=== PATIENT | female | born 1940 | race Caucasian/White ===

== ENCOUNTER 2017-10-31 18:25 | Inpatient (IN) | payer MEDICARE ==
[~2017-10-31] VITALS: Ht 157.5 cm; Wt 63.6 kg
[~2017-10-31 18:25] MED LIST: ALPR-624 PO; CLOP75TA35 PO; COM10T PO; COR3.125T PO; CYCL-394 PO; HYDR-3965 PO; MORP30TA PO; POTA20TA19 PO; SENN-28 PO; ZES5T PO
[2017-10-31] MEDS ORDERED: fentaNYL/PF 50MCG/1 ML 2ML syringe IV ONE (18:35)
[2017-10-31 18:52] LABS: BASOPHILS % (AUTO) 0.4 % (0-1); EOSINOPHILS # (AUTO) 0.2 X10'3 (0-0.9); EOSINOPHILS % (AUTO) 4.2 % (0-6); HEMATOCRIT 29.9 % (35.0-45.0); HEMOGLOBIN 10.2 g/dl (12.0-16.0); LYMPHOCYTES % (AUTO) 33.2 % (21-51); MEAN CORPUSCULAR HEMOGLOBIN 28.1 PG (27.0-31.0); MEAN CORPUSCULAR HGB CONC 34.2 % (33.0-36.5); MEAN CORPUSCULAR VOLUME 82.2 FL (78-98); MEAN PLATELET VOLUME 7.5 FL (7.4-10.4); MONOCYTES # (AUTO) 0.5 X10'3 (0-0.9); NEUTROPHILS # (AUTO) 3.2 X10'3 (1.8-7.7); NEUTROPHILS % (AUTO) 54.2 % (42-75); PLATELET COUNT 193 X10'3 (140-440); RED BLOOD COUNT 3.64 X10'6 (4.20-5.60); RED CELL DISTRIBUTION WIDTH 14.1 % (11.5-14.5)
[2017-10-31 19:02] LABS: INR 0.9 INR; PARTIAL THROMBOPLASTIN TIME 28 SECONDS (22-32); PROTHROMBIN TIME 9.5 SECONDS (9.0-12.0)
[2017-10-31 19:08] LABS: ALANINE AMINOTRANSFERASE 33 U/L (12-78); ALBUMIN 2.9 G/DL (3.4-5.0); ALKALINE PHOSPHATASE 98 IU/L (46-116); ANION GAP 6 (8-16); ASPARTATE AMINO TRANSFERASE 23 U/L (10-37); BILIRUBIN,TOTAL 0.2 MG/DL (0.1-1.0); BLOOD UREA NITROGEN 13 MG/DL (7-18); BUN/CREATININE RATIO 17.6 (6.6-38.0); CALCIUM 8.3 MG/DL (8.5-10.1); CHLORIDE 106 MMOL/L (99-107); CREATININE 0.74 MG/DL (0.40-0.90); GLUCOSE 109 MG/DL (70-104); SODIUM 142 MMOL/L (135-145); TOTAL CARBON DIOXIDE 30.1 MMOL/L (24-32); TOTAL PROTEIN 5.7 G/DL (6.4-8.2); eGFR 76 ML/MIN
[2017-10-31] MEDS ORDERED: aspirin 81mg tab.chew PO ONE (19:15)
[2017-10-31] MEDS ORDERED: ALPR-624 PO (19:31)
[2017-10-31 19:36] LABS: CLARITY,URINE CLEAR (Clear); COLOR,URINE YELLOW (Yellow); GLUCOSE, URINE NEGATIVE (Neg); KETONES,URINE NEGATIVE (Neg); LEUKOCYTE ESTERASE ,URINE MODERATE (Neg); NITRITES, URINE NEGATIVE (Neg); OCCULT BLOOD,URINE NEGATIVE (Neg); PH,URINE 6.5 (4.8-8.0); PROTEIN,URINE NEGATIVE (Neg); UROBILINOGEN,URINE 0.2 E.U/dL (0.2-1.0)
[2017-10-31 19:38] LABS: UA COLLECTION TYPE CLN CATCH MIDSTREAM
[2017-10-31 19:43] LABS: BACTERIA,URINE FEW /HPF (Neg); RBC,URINE 0-2 /HPF (0-2); SQUAMOUS EPITHELIAL CELL,UR FEW /LPF (FEW)
[2017-10-31] MEDS ORDERED: ESOM20CA PO (19:51)
[2017-10-31] MEDS ORDERED: METO-292 PO (19:51)
[2017-10-31] MEDS ORDERED: ASPI-611 PO (19:51)
[2017-10-31] MEDS ORDERED: ISOS30TA9 PO (19:51)
[2017-10-31] MEDS ORDERED: LACT1CAP65 PO (19:51)
[2017-10-31] MEDS ORDERED: CLIN300P10 PO (19:51)
[2017-10-31] MEDS ORDERED: CARV-49 PO (19:51)
[2017-10-31] MEDS ORDERED: SENN-93 PO (19:51)
[2017-10-31] MEDS ORDERED: CEPH500C2 PO (19:51)
[2017-10-31] MEDS ORDERED: OCUVITE PO (19:51)
[2017-10-31] MEDS ORDERED: NITR0.4T SL (19:51)
[2017-10-31] MEDS ORDERED: LUBI24CA5 PO (19:51)
[2017-10-31] MEDS: morphine ER 15mg tablet PO SCH ×2 (20:00→23:36)
[2017-10-31] MEDS ORDERED: nitroGLYCERIN 0.4mg SUBLingual tab SL PRN ×2 (20:25→21:40)
[2017-10-31] MEDS ORDERED: magnesium hydroxide 30ml (MOM) UD suspension PO PRN (21:25)
[2017-10-31] MEDS ORDERED: ondansetron/PF 4mg/2ml inj IV PRN (21:25)
[2017-10-31] MEDS ORDERED: acetaminophen 325mg tablet PO PRN (21:25)
[2017-10-31] MEDS ORDERED: mag hydrox/Alum hydrox/simeth 30ml oral suspension PO PRN (21:25)
[2017-10-31] MEDS ORDERED: CefTRIAXone/D5W-Rocephin 1gm 50 ML IV ONE (21:35)
[2017-10-31 22:00] VITALS: BP 148/55
[2017-10-31] MEDS ORDERED: LORazepam 0.5 MG tablet PO PRN (23:25)
[2017-10-31] MEDS ORDERED: ALPRAZolam 0.5mg tablet PO ONE (23:30)
[2017-11-01 01:57] LABS: ALANINE AMINOTRANSFERASE 36 U/L (12-78); ALBUMIN 2.9 G/DL (3.4-5.0); ALKALINE PHOSPHATASE 99 IU/L (46-116); ANION GAP 4 (8-16); ASPARTATE AMINO TRANSFERASE 30 U/L (10-37); BILIRUBIN,TOTAL 0.2 MG/DL (0.1-1.0); BLOOD UREA NITROGEN 14 MG/DL (7-18); BUN/CREATININE RATIO 15.9 (6.6-38.0); CALCIUM 8.7 MG/DL (8.5-10.1); CHLORIDE 107 MMOL/L (99-107); CREATININE 0.88 MG/DL (0.40-0.90); GLUCOSE 98 MG/DL (70-104); POTASSIUM 4.2 MMOL/L (3.5-5.1); SODIUM 141 MMOL/L (135-145); TOTAL CARBON DIOXIDE 30.5 MMOL/L (24-32); TOTAL PROTEIN 5.7 G/DL (6.4-8.2); eGFR 62 ML/MIN
[2017-11-01 02:00] VITALS: BP 144/58
[2017-11-01 02:01] LABS: BASOPHILS % (AUTO) 0.3 % (0-1); EOSINOPHILS # (AUTO) 0.3 X10'3 (0-0.9); EOSINOPHILS % (AUTO) 4.1 % (0-6); HEMATOCRIT 29.2 % (35.0-45.0); HEMOGLOBIN 9.8 g/dl (12.0-16.0); LYMPHOCYTES # (AUTO) 2.1 X10'3 (1.1-4.8); LYMPHOCYTES % (AUTO) 29.7 % (21-51); MEAN CORPUSCULAR HEMOGLOBIN 27.6 PG (27.0-31.0); MEAN CORPUSCULAR HGB CONC 33.6 % (33.0-36.5); MEAN CORPUSCULAR VOLUME 82.3 FL (78-98); MEAN PLATELET VOLUME 7.8 FL (7.4-10.4); MONOCYTES # (AUTO) 0.5 X10'3 (0-0.9); MONOCYTES % (AUTO) 7.6 % (2-12); NEUTROPHILS # (AUTO) 4.1 X10'3 (1.8-7.7); NEUTROPHILS % (AUTO) 58.3 % (42-75); PLATELET COUNT 172 X10'3 (140-440); RED BLOOD COUNT 3.54 X10'6 (4.20-5.60); RED CELL DISTRIBUTION WIDTH 14.2 % (11.5-14.5); WHITE BLOOD COUNT 6.9 X10'3 (4.5-11.0)
[2017-11-01 06:00] VITALS: BP 134/59
[2017-11-01] MEDS ORDERED: pantoprazole 40mg Tablet.DR PO SCH (08:00)
[2017-11-01] MEDS ORDERED: beta-carotene(A) w/C & E + minerals tab PO SCH (08:00)
[2017-11-01] MEDS ORDERED: sennosides 8.6mg tablet PO SCH (08:00)
[2017-11-01] MEDS ORDERED: heparin, porcine 5000 units/ml vial SQ SCH (08:00)
[2017-11-01] MEDS ORDERED: sennosides/docusate sodium tablet PO SCH (08:00)
[2017-11-01] MEDS ORDERED: ALPRAZolam 0.5mg tablet PO SCH ×3 (08:00)
[2017-11-01] MEDS ORDERED: lactobacillus rhamnosus 10,000 MMU CELLS/CAPSULE PO SCH (08:00)
[2017-11-01] MEDS ORDERED: morphine ER 15mg tablet PO SCH (08:00)
[2017-11-01] MEDS ORDERED: metoprolol tartrate 12.5mg (1/2 tablet) PO SCH (08:00)
[2017-11-01] MEDS ORDERED: lubiprostone 24mcg capsule PO SCH (08:00)
[2017-11-01] MEDS ORDERED: aspirin 81mg tab.chew PO SCH (08:00)
[2017-11-01] MEDS ORDERED: carvedilol 6.25mg tablet PO SCH (08:00)
[2017-11-01] MEDS: morphine ER 15mg tablet PO SCH (08:01)
[2017-11-01 11:00] VITALS: BP 138/51
[2017-11-01 15:00] VITALS: BP 160/64
[2017-11-09] MEDS ORDERED: MORP30TA PO (13:26)
== END 2017-11-01 18:31 | disposition home or self-care (01) | DRG 690 ==
LOC: ER 18:25 → ED HOLD 21:25 → PCU 3S 22:18
PROVIDERS: ADMIT Internal Medicine; ATTEND Internal Medicine
DX: N39.0 Urinary tract infection, site not specified (principal); L03.115 Cellulitis of right lower limb; K21.9 Gastro-esophageal reflux disease without esophagitis; R07.9 Chest pain, unspecified; R41.0 Disorientation, unspecified; H35.30 Unspecified macular degeneration; Z88.2 Allergy status to sulfonamides; E78.00 Pure hypercholesterolemia, unspecified; I25.119 Atherosclerotic heart disease of native coronary artery with unspecified angina pectoris; Z90.710 Acquired absence of both cervix and uterus; Z79.82 Long term (current) use of aspirin; Z79.899 Other long term (current) drug therapy; Z88.5 Allergy status to narcotic agent; Z95.1 Presence of aortocoronary bypass graft
CPT/HCPCS: 36415; 71045; 80053; 81001; 83605; 83880; 84145; 84484; 85025; 85610; 85730; 87040; 87070; 87088; 93005; 93306; 96365; 96366; 99285; J0696; J1644; J3010; J7030

== ENCOUNTER 2020-08-17 03:23 | Emergency (ER) | payer MEDICARE ==
[~2020-08-17] VITALS: Ht 154.9 cm; Wt 63.6 kg
[~2020-08-17 03:23] MED LIST changes: +ASPI-611 PO; +CARV-49 PO; -CLOP75TA35 PO; -COM10T PO; -COR3.125T PO; -CYCL-394 PO; +ESOM20CA PO; -HYDR-3965 PO; +LACT1CAP65 PO; +LUBI24CA5 PO; +METO-292 PO; +NITR0.4T SL; +OCUVITE PO; -POTA20TA19 PO; +SENN-93 PO
[2020-08-17] MEDS ORDERED: cyclobenzaprine 10mg tablet PO ONE (04:05)
[2020-08-17] MEDS ORDERED: celeCOXIB 100mg capsule PO ONE (04:11)
[2020-08-17] MEDS: morphine 2 MG/ML inj. syringe IV PRN ×4 (04:29→08:18)
[2020-08-17] MEDS ORDERED: morphine 4 MG/ML inj SYRINge IV ONE (06:35)
[2020-08-17 08:00] VITALS: BP 126/68
[2020-08-17] MEDS ORDERED: MELO-102 PO (08:28)
--- NOTE | 2020-08-17 08:47 | NUR ---
PT'S DAUGHTER ARRIVES AT BEDSIDE. ADMIN LAST DOSE OF PAIN MEDS. DC IV INTACT, SITE CLEAR. DAUGHTER REQUESTING PAIN MEDS FOR DC, GIVEN MELOXICAM RX FOR DC. PT ALREADY TAKING THAT AND IT DOESNT HELP SO DAUGHTER STATES THEY WONT BE FILLING THAT RX.
== END 2020-08-17 08:54 | disposition home or self-care (01) ==
LOC: ER 03:24
DX: G89.29 Other chronic pain (principal); M54.5 Low back pain; I25.10 Atherosclerotic heart disease of native coronary artery without angina pectoris; E78.00 Pure hypercholesterolemia, unspecified; K21.9 Gastro-esophageal reflux disease without esophagitis; Z87.440 Personal history of urinary (tract) infections; Z95.5 Presence of coronary angioplasty implant and graft; Z90.49 Acquired absence of other specified parts of digestive tract; Z90.710 Acquired absence of both cervix and uterus; Z87.891 Personal history of nicotine dependence; Z88.1 Allergy status to other antibiotic agents; Z88.2 Allergy status to sulfonamides; Z88.8 Allergy status to other drugs, medicaments and biological substances; Z79.82 Long term (current) use of aspirin; Z79.899 Other long term (current) drug therapy
CPT/HCPCS: 96374; 96376; 99285; J2270

== ENCOUNTER 2020-08-31 18:29 | Emergency (ER) | payer MEDICARE ==
[~2020-08-31] VITALS: Ht 154.9 cm; Wt 61.9 kg
[~2020-08-31 18:29] MED LIST changes: +MELO-102 PO
[2020-08-31] MEDS ORDERED: morphine 10mg/ml inj. IM ONE (22:55)
[2020-08-31] MEDS ORDERED: OXYC-150 PO (23:33)
--- NOTE | 2020-09-01 | NUR ---
PT C/O CHEST PAIN RADIATING TO THE LEFT BACK [facility] EKG CALLED AND COMPLETED NOTIFIED DR TURNER
[2020-09-01] MEDS ORDERED: aspirin 81mg tab.chew PO ONE (00:20)
[2020-09-01] MEDS ORDERED: nitroGLYCERIN 0.4mg SUBLingual tab SL PRN (00:20)
[2020-09-01 00:48] LABS: BASOPHILS # (AUTO) 0.1 X10'3 (0-0.2); BASOPHILS % (AUTO) 0.4 % (0-1); EOSINOPHILS # (AUTO) 0.1 X10'3 (0-0.9); EOSINOPHILS % (AUTO) 1.2 % (0-6); HEMATOCRIT 38.6 % (35.0-45.0); HEMOGLOBIN 13.1 g/dl (12.0-16.0); LYMPHOCYTES # (AUTO) 5.2 X10'3 (1.1-4.8); LYMPHOCYTES % (AUTO) 40.5 % (21-51); MEAN CORPUSCULAR HEMOGLOBIN 28.4 PG (27.0-31.0); MEAN CORPUSCULAR VOLUME 83.3 FL (78-98); MEAN PLATELET VOLUME 7.2 FL (7.4-10.4); MONOCYTES # (AUTO) 0.8 X10'3 (0-0.9); MONOCYTES % (AUTO) 6.5 % (2-12); NEUTROPHILS # (AUTO) 6.6 X10'3 (1.8-7.7); NEUTROPHILS % (AUTO) 51.4 % (42-75); PLATELET COUNT 256 X10'3 (140-440); RED BLOOD COUNT 4.63 X10'6 (4.20-5.60); RED CELL DISTRIBUTION WIDTH 14.5 % (11.5-14.5); WHITE BLOOD COUNT 12.8 X10'3 (4.5-11.0)
[2020-09-01 00:58] LABS: ALANINE AMINOTRANSFERASE 20 U/L (12-78); ALBUMIN 3.9 G/DL (3.4-5.0); ALBUMIN/GLOBULIN RATIO 1.3 (1.1-1.5); ALKALINE PHOSPHATASE 92 IU/L (46-116); ANION GAP 9 (8-16); ASPARTATE AMINO TRANSFERASE 13 U/L (10-37); BILIRUBIN,TOTAL 0.4 MG/DL (0.1-1.0); BLOOD UREA NITROGEN 19 MG/DL (7-18); BUN/CREATININE RATIO 18.3 (6.6-38.0); CALCIUM 9.6 MG/DL (8.5-10.1); CHLORIDE 102 MMOL/L (99-107); CREATININE 1.04 MG/DL (0.40-0.90); GLUCOSE 104 MG/DL (70-104); POTASSIUM 4.1 MMOL/L (3.5-5.1); SODIUM 136 MMOL/L (135-145); TOTAL CARBON DIOXIDE 24.8 MMOL/L (24-32); eGFR 51 ML/MIN
[2020-09-01 01:07] LABS: MAGNESIUM 1.9 MG/DL (1.5-2.4); TROPONIN I < 0.04 NG/ML (0.0-0.05)
[2020-09-01 01:41] LABS: CLARITY,URINE CLOUDY (Clear); COLOR,URINE YELLOW (Yellow); GLUCOSE, URINE NEGATIVE (Neg); KETONES,URINE NEGATIVE (Neg); LEUKOCYTE ESTERASE ,URINE MODERATE (Neg); NITRITES, URINE POSITIVE (Neg); OCCULT BLOOD,URINE NEGATIVE (Neg); PH,URINE 5.5 (4.8-8.0); PROTEIN,URINE NEGATIVE (Neg); UA COLLECTION TYPE CLN CATCH MIDSTREAM; UROBILINOGEN,URINE 0.2 E.U/dL (0.2-1.0)
[2020-09-01 01:53] LABS: BACTERIA,URINE 4+ /HPF (Neg); RBC,URINE NONE SEEN /HPF (0-2); SQUAMOUS EPITHELIAL CELL,UR MODERATE /LPF (FEW); TRANSITIONAL EPI CELLS,URINE FEW /HPF
[2020-09-01] MEDS ORDERED: levoFLOXACIN-Levaquin 500mg/D5 100 ML IV ONE ×2 (02:30)
--- NOTE | 2020-09-01 03:01 | NUR ---
PT DAUGHTER RYAN CAN BE REACHED AT [phone] SHE WWOULD LIKE TO BE CALLED IF PATIENT IS ADMITTED OR DISCHARGE SHE IS HER TRANSPORTATION HOME
[2020-09-01] MEDS ORDERED: morphine 4 MG/ML inj SYRINge IM ONE (03:15)
--- NOTE | 2020-09-01 04:35 | NUR ---
PHONED PT DAUGHTER GELACIO PT HAS BEEN DISCHARGE. SHE IS ON HER WAY
[2020-09-01 05:45] VITALS: BP 159/71
== END 2020-09-01 05:30 | disposition home or self-care (01) ==
LOC: ER 18:30
DX: G89.29 Other chronic pain (principal); M54.5 Low back pain; R07.89 Other chest pain; I25.10 Atherosclerotic heart disease of native coronary artery without angina pectoris; E78.00 Pure hypercholesterolemia, unspecified; K21.9 Gastro-esophageal reflux disease without esophagitis; Z87.440 Personal history of urinary (tract) infections; Z90.49 Acquired absence of other specified parts of digestive tract; Z95.1 Presence of aortocoronary bypass graft; Z90.710 Acquired absence of both cervix and uterus; Z99.2 Dependence on renal dialysis; Z88.2 Allergy status to sulfonamides; Z88.8 Allergy status to other drugs, medicaments and biological substances; Z79.82 Long term (current) use of aspirin
CPT/HCPCS: 36415; 71045; 80053; 81001; 83735; 83880; 84484; 85025; 87088; 93005; 96365; 96372; 99285; J1956; J2270; 87077; 87186

== ENCOUNTER 2021-08-29 09:40 | Emergency (ER) | payer MEDICARE ==
[~2021-08-29] VITALS: Ht 154.9 cm; Wt 60.5 kg
[~2021-08-29 09:40] MED LIST changes: -ALPR-624 PO; +AMOX-580 PO; +CYCL-1 PO; -ESOM20CA PO; +EVOL140P3 SQ; +LISI5TAB22 PO; -LUBI24CA5 PO; -MELO-102 PO; -MORP30TA PO; +OMEP20CA16 PO; +ONDA4TAB12 PO; +OXYC1TAB17 PO; +POLY17PO10 PO; -SENN-28 PO; -SENN-93 PO; +TEMA15CA5 PO; -ZES5T PO
[2021-08-29] MEDS ORDERED: ondansetron/PF 4mg/2ml inj IV ONE (10:25)
--- NOTE | 2021-08-29 10:45 | NUR ---
pt to CT
[2021-08-29 10:49] LABS: BASOPHILS # (AUTO) 0.1 X10'3 (0-0.2); BASOPHILS % (AUTO) 1.1 % (0-1); EOSINOPHILS # (AUTO) 0.1 X10'3 (0-0.9); HEMATOCRIT 36.8 % (35.0-45.0); HEMOGLOBIN 12.6 g/dl (12.0-16.0); LYMPHOCYTES # (AUTO) 3.7 X10'3 (1.1-4.8); LYMPHOCYTES % (AUTO) 34.5 % (21-51); MEAN CORPUSCULAR HEMOGLOBIN 28.5 PG (27.0-31.0); MEAN CORPUSCULAR HGB CONC 34.2 g/dL (33.0-36.5); MEAN CORPUSCULAR VOLUME 83.5 FL (78-98); MONOCYTES # (AUTO) 0.9 X10'3 (0-0.9); NEUTROPHILS # (AUTO) 5.9 X10'3 (1.8-7.7); NEUTROPHILS % (AUTO) 55.4 % (42-75); PLATELET COUNT 347 X10'3 (140-440); RED BLOOD COUNT 4.41 X10'6 (4.20-5.60); RED CELL DISTRIBUTION WIDTH 14.4 % (11.5-14.5); WHITE BLOOD COUNT 10.6 X10'3 (4.5-11.0)
[2021-08-29] MEDS ORDERED: HYDROcodone/acetaminophen 5mg/325mg tablet PO ONE (10:55)
[2021-08-29] MEDS ORDERED: fentaNYL/PF 50MCG/1 ML 2ML syringe IV ONE (10:55)
[2021-08-29 10:56] LABS: ALANINE AMINOTRANSFERASE 21 U/L (12-78); ALBUMIN 3.9 G/DL (3.4-5.0); ALBUMIN/GLOBULIN RATIO 1.3 (1.1-1.5); ALKALINE PHOSPHATASE 96 IU/L (46-116); ANION GAP 10 (8-16); ASPARTATE AMINO TRANSFERASE 16 U/L (10-37); BILIRUBIN,TOTAL 0.5 MG/DL (0.1-1.0); BLOOD UREA NITROGEN 13 MG/DL (7-18); BUN/CREATININE RATIO 15.1 (6.6-38.0); CALCIUM 9.9 MG/DL (8.5-10.1); CHLORIDE 95 MMOL/L (99-107); CREATININE 0.86 MG/DL (0.40-0.90); GLUCOSE 134 MG/DL (70-104); POTASSIUM 3.5 MMOL/L (3.5-5.1); SODIUM 129 MMOL/L (135-145); TOTAL CARBON DIOXIDE 23.8 MMOL/L (24-32); TOTAL PROTEIN 6.8 G/DL (6.4-8.2); eGFR 63 ML/MIN
[2021-08-29] MEDS ORDERED: normal saline 1000ML IV soln IVB ONE (11:55)
[2021-08-29 12:25] LABS: CLARITY,URINE CLOUDY (Clear); COLOR,URINE YELLOW (Yellow); GLUCOSE, URINE NEGATIVE (Neg); KETONES,URINE NEGATIVE (Neg); LEUKOCYTE ESTERASE ,URINE TRACE (Neg); NITRITES, URINE NEGATIVE (Neg); OCCULT BLOOD,URINE SMALL (Neg); PH,URINE 6.5 (4.8-8.0); PROTEIN,URINE NEGATIVE (Neg); UROBILINOGEN,URINE 0.2 E.U/dL (0.2-1.0)
[2021-08-29 12:33] LABS: UA COLLECTION TYPE STRAIGHT CATH
[2021-08-29 12:39] LABS: MUCUS STRANDS MANY /LPF (Neg); SQUAMOUS EPITHELIAL CELL,UR MANY /LPF (FEW)
[2021-08-29 12:40] LABS: TRANSITIONAL EPI CELLS,URINE MANY /HPF
[2021-08-29 12:41] LABS: BACTERIA,URINE 1+ /HPF (Neg); WBC,URINE 0-4 /HPF (0-4)
[2021-08-29 12:42] LABS: AMORPHOUS PHOSPHATES 2+
[2021-08-29] MEDS ORDERED: LEVO250T43 PO (12:52)
[2021-08-29] MEDS ORDERED: DICY10CA88 PO (12:58)
[2021-08-29 13:05] VITALS: BP 167/87
== END 2021-08-29 13:06 | disposition home or self-care (01) ==
LOC: ER 09:41
DX: R10.84 Generalized abdominal pain (principal); R19.7 Diarrhea, unspecified; N95.1 Menopausal and female climacteric states; R11.0 Nausea
CPT/HCPCS: 36415; 74176; 80053; 81001; 84145; 85025; 96374; 96375; 99285; J2405; J3010; J7030; A4353

== ENCOUNTER 2023-09-11 18:28 | Emergency (ER) | payer MEDICARE ==
[~2023-09-11] VITALS: Ht 154.9 cm; Wt 68.2 kg
[~2023-09-11 18:28] MED LIST changes: +ONDA-243 PO; -ONDA4TAB12 PO
[2023-09-11 18:47] VITALS: TEMP 98
[2023-09-11 21:00] VITALS: BP 177/75; PULSE 79; RESP 16; O2SAT 95
== END 2023-09-11 21:33 | disposition left against medical advice (07) ==
LOC: ER 18:28
DX: M54.50 Low back pain, unspecified (principal); Z53.21 Procedure and treatment not carried out due to patient leaving prior to being seen by health care provider

== ENCOUNTER 2024-05-22 06:24 | Day surgery (SDC) | payer MEDICARE ==
[2024-05-15 15:09] LABS: BASOPHILS # (AUTO) 0.1 X10'3 (0-0.2); BASOPHILS % (AUTO) 0.5 % (0-1); EOSINOPHILS # (AUTO) 0.1 X10'3 (0-0.9); EOSINOPHILS % (AUTO) 0.7 % (0-6); LYMPHOCYTES % (AUTO) 36.6 % (21-51); MEAN CORPUSCULAR HEMOGLOBIN 29.6 PG (27.0-31.0); MEAN CORPUSCULAR VOLUME 87.2 FL (78-98); MEAN PLATELET VOLUME 6.3 FL (7.4-10.4); MONOCYTES # (AUTO) 0.9 X10'3 (0-0.9); MONOCYTES % (AUTO) 6.6 % (2-12); NEUTROPHILS # (AUTO) 7.5 X10'3 (1.8-7.7); NEUTROPHILS % (AUTO) 55.6 % (42-75); PRE OP HEMATOCRIT 35.9 % (35.0-45.0); PRE OP HEMOGLOBIN 12.2 g/dL (12.0-16.0); PRE OP PLATELET COUNT 275 X10'3 (140-440); PRE OP WHITE BLOOD COUNT 13.6 10'3 (4.8-10.8); RED BLOOD COUNT 4.12 X10'6 (4.20-5.60)
[2024-05-15 15:23] LABS: ALBUMIN 4.2 G/DL (3.4-5.0); ALBUMIN/GLOBULIN RATIO 1.3 (1.1-1.5); ALKALINE PHOSPHATASE 84 IU/L (46-116); BLOOD UREA NITROGEN 18 MG/DL (7-18); BUN/CREATININE RATIO 23.1 (10.0-20.0); CALCIUM 9.8 MG/DL (8.5-10.1); CHLORIDE 93 MMOL/L (99-107); CREATININE 0.78 MG/DL (0.40-0.90); PRE OP ALT 25 U/L (30-65); PRE OP ANION GAP 6 (8-16); PRE OP AST 15 U/L (10-37); PRE OP BILIRUB, TOTAL 0.4 MG/DL (0.0-1.0); PRE OP GLUCOSE 95 MG/DL (70-104); PRE OP POTASSIUM 4.5 MMOL/L (3.4-5.1); TOTAL CARBON DIOXIDE 28.9 MMOL/L (24-32); TOTAL PROTEIN 7.5 G/DL (6.4-8.2); eGFR 70 ML/MIN
[2024-05-15 15:28] LABS: PRE OP SODIUM 128 MMOL/L (135-145)
[~2024-05-22] VITALS: Ht 154.9 cm; Wt 59.0 kg
[2024-05-22] VITALS (12 sets, daily range): BP systolic 119–168; BP diastolic 54–78; PULSE 64–81; RESP 10–24; TEMP 97.5; O2SAT 96–100
[~2024-05-22 06:24] MED LIST changes: +ALPR0.5T9 PO; -AMOX-580 PO; -CARV-49 PO; -CYCL-1 PO; -EVOL140P3 SQ; +EVOL140S2 SUBCUT; -LACT1CAP65 PO; -LISI5TAB22 PO; +LOSA1TAB36 PO; -METO-292 PO; -NITR0.4T SL; -OCUVITE PO; -OMEP20CA16 PO; -ONDA-243 PO; -OXYC1TAB17 PO; +PANT40TA54 PO; -POLY17PO10 PO; -TEMA15CA5 PO; +TRAM50TA2 PO; +VIT1CAPS46 PO
[2024-05-22] MEDS ORDERED: BUPIVAcaine 2.5mg/ml inj 50ml vial (contains preservative) ONE (07:03)
[2024-05-22] MEDS ORDERED: LIDOcaine 1% 30ml preserv. free vial ONE ×2 (07:03→08:36)
[2024-05-22] MEDS: ringers solution, lacted 1,000 ML IV SCH (07:47)
[2024-05-22] MEDS: famotidine 20mg tablet PO ONE (07:47)
[2024-05-22] MEDS ORDERED: acetaminophen 1,000mg/100ml IV 100 ML IV PRN (07:50)
[2024-05-22] MEDS ORDERED: ringers solution, lacted 1,000 ML IV SCH (07:50)
[2024-05-22] MEDS ORDERED: meperidine/PF 25mg/ml syringe IV PRN ×3 (07:50)
[2024-05-22] MEDS ORDERED: ondansetron/PF 4mg/2ml inj IV PRN (07:50)
[2024-05-22] MEDS ORDERED: HYDROmorphone/PF 0.2 MG/ML SYRINGE IV PRN ×2 (07:50)
[2024-05-22] MEDS ORDERED: proCHLORperazine 10 MG/2 ml inj IV PRN (07:50)
[2024-05-22 08:08] LABS: ISTAT HGB 11.6 g/dl (12.0-16.0); ISTAT IONIZED CALCIUM 1.4 mmol/L (1.03-1.32); ISTAT K 4.2 mmol/L (3.5-5.1)
[2024-05-22] MEDS ORDERED: propofol inj 20 ML IV ONE ×2 (08:56)
[2024-05-22] MEDS: BUPIVAcaine/PF 2.5 mg/ml (0.25%) 30ml vial IJ ONE (09:13)
[2024-05-22] MEDS ORDERED: HYDROcodone/acetaminophen 5mg/325mg tablet PO PRN (09:55)
== END 2024-05-22 11:27 | disposition home or self-care (01) ==
LOC: PAS 06:24
PROVIDERS: ATTEND Surgery
DX: R22.2 Localized swelling, mass and lump, trunk (principal); D17.1 Benign lipomatous neoplasm of skin and subcutaneous tissue of trunk; I10 Essential (primary) hypertension; M19.90 Unspecified osteoarthritis, unspecified site; E78.5 Hyperlipidemia, unspecified; I25.10 Atherosclerotic heart disease of native coronary artery without angina pectoris; G62.9 Polyneuropathy, unspecified; Z95.5 Presence of coronary angioplasty implant and graft; K21.9 Gastro-esophageal reflux disease without esophagitis; Z87.891 Personal history of nicotine dependence; Z90.710 Acquired absence of both cervix and uterus; Z90.49 Acquired absence of other specified parts of digestive tract; Z79.899 Other long term (current) drug therapy; Z98.890 Other specified postprocedural states; Z98.49 Cataract extraction status, unspecified eye
CPT/HCPCS: 21930; 36415; 80047; 80053; 85025; 93005; A4215; A4618; A7000; J2003; J2704; J3490; J7030; J7120; Z7506; Z7512; Z7610

== ENCOUNTER 2024-10-16 13:14 | Emergency (ER) | payer MEDICARE ==
[~2024-10-16] VITALS: Ht 154.9 cm; Wt 59.0 kg
--- NOTE | 2024-10-16 13:52 | Physician Documentation ---
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 She states that her bowel movements are normal denies any fever however she has very tender in the periumbilical region.. This patient does have a history of diverticulitis denies any fevers currently. Additionally the patient takes chronic narcotic pain medication via tramadol for back pain Day of Onset: Oct 16, 2024 Medication Reconciliation Allergies: Coded Allergies: ceftriaxone (Verified Allergy, Severe, SEVERE SWELLING, 05/21/24) cephalexin (Unverified Allergy, Severe, SEVERE SWELLING, 10/16/24) clindamycin (Verified Allergy, Severe, SEVERE SWEELING, 10/16/24) morphine (Verified Allergy, Severe, Low blood pressure, 09/07/20) can take oral morphine, IV morphine causes blood pressure to drop too low. nitrofurantoin (Verified Allergy, Intermediate, Itching, rash, swelling, BODY CRAMPING, 05/21/24) prednisone (Verified Allergy, Intermediate, Swelling, 11/08/17) Sulfa (Sulfonamide Antibiotics) (Verified Allergy, Unknown, Rash, 11/08/17) codeine (Verified Allergy, Unknown, "sick to my stomach", vomiting, 11/08/17) dapagliflozin (Verified Adverse Reaction, Unknown, SEVERE DEHYDRATION, 05/21/24) fentanyl (Verified Adverse Reaction, Unknown, NAUSEA, STOMACH CRAMPING, 05/21/24) sacubitril (Verified Adverse Reaction, Unknown, SEVERE DEHYDRATION, 05/21/24) valsartan (Verified Adverse Reaction, Unknown, SEVERE DEHYDRATION, 05/21/24) Scheduled Aspirin (Aspir 81), 1 TAB PO DAILY, (Reported) Evolocumab (Repatha Syringe), Unknown Dose SUBCUT Q2W, (Reported) Losartan/Hydrochlorothiazide (Losartan-Hctz 50-12.5 Mg Tab), 1 TAB PO DAILY, (Reported) Pantoprazole Sodium (Pantoprazole Sodium), 1 TAB PO DAILY, (Reported) Polyethylene Glycol 3350* (Miralax*), 1 PKT PO DAILY Vit C/E/Zn/Coppr/Lutein/Zeaxan (Preservision Areds 2 Softgel), 1 CAP PO Q12H, (Reported) Scheduled PRN Alprazolam (Alprazolam), 1 TAB PO for for anxiety/agitation, (Reported) Hydrocodone Bit/Acetaminophen 5/325 MG (Lilbourn 5/325 MG), 1 TAB PO Q6H PRN for pain Tramadol Hcl (Tramadol Hcl), 1 TAB PO Q8H PRN for pain, (Reported) Past Medical History Past Medical History: Cataracts, Coronary Artery Disease, High Cholesterol, Hypertension, *PULMONARY*, Diverticulitis, GERD, UTI, Diabetes, Chronic Back Pain Past Surgical History: abdominal surgery, angioplasty, cholecystectomy, coronary bypass surgery, hysterectomy, orthopedic surgeries Patient History: FH: CAD (coronary artery disease) Alcohol Use: None Drug Use: none Lives with: Spouse Lives In: Home Occupation: retired Review of Systems All Other Systems at this time: Reviewed and Negative ROS As stated above in the HPI, otherwise all systems are reviewed and negative. Physical Exam Vital Signs: Temperature: 97.9, Source: Oral, Heart Rate: 71, Respiratory Rate: 18, BP: 187/84, Pulse Oximetry: 98, Weight: 59.000 Oxygen Flow Rate: 0 Physical Exam General: Alert, no apparent distress. Respiratory: Lungs clear, no respiratory distress. Cardiovascular: Regular rate and rhythm, no murmurs. Gastrointestinal: Soft,tender, nondistended. Bowels sounds present. Neurologic: Oriented x4. Psychiatric: Normal mood and affect. Progress Results/Orders Results/Orders Orders - EDILIA PHILLIPS INTERMEDIATE TEACHER Urinalysis, Cult If Indicated (10/16/24 13:37) Cbc/Diff (10/16/24 13:37) BMP (10/16/24 13:37) Lipase (10/16/24 13:37) CMP (10/16/24 13:37) Vital Signs 10/16/24 13:18 Temp 97.9 Pulse 71 Resp 18 B/P (MAP) 187/84 Pulse Ox 98 O2 Flow Rate 0 Medical Decision Making Findings This 84-year-old female presents with CT findings which indicate diverticulosis versus diverticulitis. Additionally I think that she is suffering from constipation likely secondary to chronic use of narcotics. As the whether or not she uses MiraLax or any other stool softeners. She says no. She said that the tramadol she takes a logan or stomach however the Lilbourn that she was provided today did not bother her. Send her some MiraLax in his short dose of Lilbourn was pain.. Do not think corticosteroids are a hughes choice at this time based on her history of diverticulitis offered hospital admission, patient declined Differential Dx:Considerations: Include: AAA, -Complete, - Incomplete, -Inevitable, -Missed, -Threatened, Abruptio placentae, Angina/CT, Aortic dissection, Appendicitis, Bowel obstruction, Cholangitis, Cholelithasis, Constipation, Diverticular disease, Esophageal rupture, Esophagitis, Gastritis/PUD, Gastroenteritis, GI hemorrhage, Hernia, Hepatitis, Inflammatory BD, Ischemic bowel, Ovarian cyst/torsion, Pancreatitis, PID, Porphyria, Trauma, intraabdominal, Urinary obstruction, Urinary tract infection, Urolithiasis, Other Departure Disposition: HOME / SELF CARE / HOMELESS Impression: Primary Impression: Abdominal pain Condition: Stable Discharge Instructions: Diverticulosis Referrals: NO PRIMARY CARE PROVIDER (PCP) Prescriptions ONDANSETRON ODT 4mg tablet (ONDANSETRON ODT) 4 Mg Tab.rapdis 1 TAB PO Q6H PRN PRN for nausea/vomiting for 4 Days, #16 TAB 0 Refills Prov: EDILIA PHILLIPS NP 10/16/24 Polyethylene Glycol 3350* (Miralax*) 1 Packet Packet 1 PKT PO DAILY for constipation, #30 PKT dissolve in water Prov: EDILIA PHILLIPS NP 10/16/24 Hydrocodone Bit/Acetaminophen 5/325 MG (Lilbourn 5/325 MG) 5 Mg/325 Mg Tablet 1 TAB PO Q6H PRN for pain, #14 TAB Prov: EDILIA PHILLIPS NP 10/16/24 Education Educated: Patient Educated regarding: diagnosis Signature Scribe Signature: e Attestation: Scribed for Edilia Phillips Z [employer] Mainframe Systems Programmer by Edilia Hannah NP . 10/16/24 16:23 EDILIA PHILLIPS NP Oct 16, 2024 13:52
[2024-10-16] MEDS: HYDROcodone/acetaminophen 10/325mg tab PO ONE (14:03)
[2024-10-16 14:10] LABS: MEAN PLATELET VOLUME 6.6 FL (7.4-10.4); RED CELL DISTRIBUTION WIDTH 13.9 % (11.5-14.5)
[2024-10-16 14:38] LABS: CREATININE 0.71 MG/DL (0.40-0.90); TOTAL CARBON DIOXIDE 24.3 MMOL/L (24-32); eCRCL 44 ML/MIN; eGFR 78 ML/MIN
[2024-10-16] MEDS: hydrALAZINE 20mg/ml inj. IV ONE (15:14)
--- NOTE | 2024-10-16 16:00 | RADIOLOGY REPORT ---
Exam: CT CT ABDOMEN PELVIS History: abd pain Comparison Study: CT ABDOMEN PELVIS on DOS: 08/07/21 TECHNIQUE: A digital primer press operator image was obtained. During the uneventful, intravenous administration of c ontrast material, multislice data acquisition was obtained through the abdomen and pelvis. The data s et was subsequently reconstructed into axial images. Images reviewed on a wrist examination is an exa mination of axial and multiplanar reformations using a variety of window levels and settings. RADIATION DOSE: DLP 503.71 mGy.cm; CTDI vol 10.25 mGy. Findings: Lungs: The lung bases are clear. Heart: No cardiomegaly or pericardial effusion. Liver: Unremarkable. Gallbladder: Cholecystectomy. Spleen: Unremarkable Pancreas: Fatty infiltration of the pancreas. Adrenals: Unremarkable Kidneys: Unremarkable GI tract: Diverticulosis without evidence of acute diverticulitis. : Unremarkable. Vasculature: Moderate aortoiliac atherosclerosis. Lymphadenopathy: Absent Peritoneum: No ascites Musculoskeletal: Mild multilevel degenerative changes of the thoracolumbar spine. L5-S1 posterior spi nal fusion. Soft tissues: Unremarkable Impression: 1. No acute abdominopelvic abnormalities. 2. Diverticulosis without evidence of acute diverticulitis. 3. Other non-acute, ancillary findings as described above.
[2024-10-16 16:17] LABS: LEUKOCYTE ESTERASE ,URINE NEGATIVE (Neg); NITRITES, URINE NEGATIVE (Neg); OCCULT BLOOD,URINE NEGATIVE (Neg)
[2024-10-16] MEDS ORDERED: HYDR-3965 PO (16:22)
[2024-10-16] MEDS ORDERED: POLY17PO10 PO (16:22)
[2024-10-16 16:24] LABS: UA COLLECTION TYPE VOIDED
[2024-10-16] MEDS ORDERED: ONDA-243 PO (16:36)
[2024-10-16] MEDS: ondansetron 4mg rapidly disintigrating tab PO ONE (16:40)
[2024-10-16 16:44] VITALS: BP 159/60; PULSE 78; RESP 15; TEMP 97.9; O2SAT 96
== END 2024-10-16 16:50 | disposition home or self-care (01) ==
LOC: ER 13:14
DX: R10.9 Unspecified abdominal pain (principal); E11.9 Type 2 diabetes mellitus without complications; E78.00 Pure hypercholesterolemia, unspecified; I10 Essential (primary) hypertension; K21.9 Gastro-esophageal reflux disease without esophagitis; I25.10 Atherosclerotic heart disease of native coronary artery without angina pectoris; Z82.49 Family history of ischemic heart disease and other diseases of the circulatory system; Z88.1 Allergy status to other antibiotic agents; Z88.2 Allergy status to sulfonamides; Z88.5 Allergy status to narcotic agent; Z88.8 Allergy status to other drugs, medicaments and biological substances; Z90.49 Acquired absence of other specified parts of digestive tract; Z79.82 Long term (current) use of aspirin; Z90.710 Acquired absence of both cervix and uterus; Z95.1 Presence of aortocoronary bypass graft
CPT/HCPCS: 36415; 74176; 80053; 81003; 83690; 85025; 96374; 99285; J0360

== ENCOUNTER 2025-01-12 15:19 | Emergency (ER) | payer MEDICARE ==
[~2025-01-12] VITALS: Ht 154.9 cm; Wt 59.0 kg
[~2025-01-12 15:19] MED LIST changes: +ONDA-243 PO
[2025-01-12 15:26] VITALS: TEMP 98.6
--- NOTE | 2025-01-12 15:29 | ELECTROCARDIOGRAPH REPORT ---
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 JOHN Pulido Measurements Intervals [place] Rate: 81 P: 22 NH: 220 QRS: 10 QRSD: 143 T: 215 QT: 364 QTc: 423 Interpretive Statements Sinus rhythm Prolonged NH interval IVCD, consider atypical LBBB Electronically Signed On 01-12-2025 16:44:[address] JOHN Pulido Please click the below link to view image of tracing.
--- NOTE | 2025-01-12 15:42 | RADIOLOGY REPORT ---
CHEST RADIOGRAPH Indication: CP Technique: Single frontal view of the chest was obtained Comparison: CHEST,SINGLE VIEW on DOS: 08/07/21, CTA CHEST on DOS: 09/13/20, CHEST,SINGLE VIEW on DOS: 09/01/20 FINDINGS: Lines and Tubes: None Lungs: No focal consolidation. Pleura: No effusion. No pneumothorax. Cardiomediastinal contours: Cardiomegaly. Bones: No acute osseous abnormality. IMPRESSION: Cardiomegaly with CHF
[2025-01-12] MEDS ORDERED: ACET-2971 PO (15:50)
[2025-01-12 15:51] LABS: MEAN PLATELET VOLUME 6.9 FL (7.4-10.4); RED CELL DISTRIBUTION WIDTH 14.3 % (11.5-14.5)
[2025-01-12] MEDS ORDERED: ONDA-243 PO (15:51)
[2025-01-12 16:14] LABS: CREATININE 0.99 MG/DL (0.40-0.90); PRO BRAIN NATRIURETIC PEPTIDE 253 PG/ML (0-450); TOTAL CARBON DIOXIDE 25.2 MMOL/L (24-32); eCRCL 31 ML/MIN; eGFR 53 ML/MIN
--- NOTE | 2025-01-12 16:18 | Physician Documentation ---
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 Radiating into her back and neck. Described as pressure. Also c/o abdominal pain LLQ ongoing 3 days. No nausea no vomiting. Had constipation but had BM today. Took nitro x 3 doses with no improvement. She does report having a stress test a few months ago with Dr. Vines which was reportedly non acute. Medication Reconciliation Allergies: Coded Allergies: ceftriaxone (Verified Allergy, Severe, SEVERE SWELLING, 05/21/24) cephalexin (Unverified Allergy, Severe, SEVERE SWELLING, 10/16/24) clindamycin (Verified Allergy, Severe, SEVERE SWEELING, 10/16/24) nitrofurantoin (Verified Allergy, Intermediate, Itching, rash, swelling, BODY CRAMPING, 05/21/24) prednisone (Verified Allergy, Intermediate, Swelling, 11/08/17) Sulfa (Sulfonamide Antibiotics) (Verified Allergy, Unknown, Rash, 11/08/17) codeine (Verified Allergy, Unknown, "sick to my stomach", vomiting, 11/08/17) dapagliflozin (Verified Adverse Reaction, Unknown, SEVERE DEHYDRATION, 05/21/24) fentanyl (Verified Adverse Reaction, Unknown, NAUSEA, STOMACH CRAMPING, 05/21/24) sacubitril (Verified Adverse Reaction, Unknown, SEVERE DEHYDRATION, 05/21/24) valsartan (Verified Adverse Reaction, Unknown, SEVERE DEHYDRATION, 05/21/24) Scheduled Evolocumab (Repatha Syringe), Unknown Dose SUBCUT Q2W, (Reported) Pantoprazole Sodium (Pantoprazole Sodium), 1 TAB PO DAILY, (Reported) Scheduled PRN Acetaminophen (Tylenol Arthritis), 1 TAB PO BID PRN for pain, (Reported) Alprazolam (Alprazolam), 1 TAB PO for for anxiety/agitation, (Reported) ONDANSETRON ODT 4mg tablet (Ondansetron Odt), 0.5 TAB PO Q6H PRN PRN for nausea/vomiting, (Reported) Tramadol Hcl (Tramadol Hcl), 1 TAB PO Q8H PRN for pain, (Reported) Discontinued Medications Aspirin (Aspir 81), 1 TAB PO DAILY, (Reported) Discontinued Reason: patient no longer taking Losartan/Hydrochlorothiazide (Losartan-Hctz 50-12.5 Mg Tab), 1 TAB PO DAILY, (Reported) Discontinued Reason: patient no longer taking ONDANSETRON ODT 4mg tablet (Ondansetron Odt), 1 TAB PO Q6H PRN PRN for nausea/vomiting Discontinued Reason: patient no longer taking Vit C/E/Zn/Coppr/Lutein/Zeaxan (Preservision Areds 2 Softgel), 1 CAP PO Q12H, (Reported) Discontinued Reason: patient no longer taking Past Medical History Past Medical History: Cataracts, Coronary Artery Disease, High Cholesterol, Hypertension, *PULMONARY*, Diverticulitis, GERD, UTI, Diabetes, Chronic Back Pain Past Surgical History: abdominal surgery, angioplasty, cholecystectomy, coronary bypass surgery, hysterectomy, orthopedic surgeries Patient History: FH: CAD (coronary artery disease) Alcohol Use: None Drug Use: none Lives with: Spouse Lives In: Home Occupation: retired Review of Systems All Other Systems at this time: Reviewed and Negative Constitutional: Denies: fever Respiratory: Denies: cough, orthopnea Cardiovascular: Denies: chest pain Gastrointestinal: Reports: abdominal pain; Denies: nausea, vomiting Genitourinary: Denies: burning, discharge, dysuria, frequency Neurological: Denies: headache, dizziness Physical Exam Vital Signs: Temperature: 98.6, Source: Oral, Heart Rate: 83, Respiratory Rate: 12, BP: 136/75, Pulse Oximetry: 94, Weight: 59.000 Oxygen Flow Rate: 0 Physical Exam well appearing no distress no jvd aox4 normal speech, intact strength. lungs ctab no reproducible tenderness abdomen ttp LLQ and RLQ, no guarding or rebound. Negative Berry. skin scattered urticaria. Progress Results/Orders Reviewed/noted all lab results: Yes Results/Orders Orders - FORTINO CROFT MD Ondansetron Disint. Tablet (Zofran Odt T (01/12/25 19:05) Amox Tr/Potassium Clavulanate (Augmentin (01/12/25 19:05) Medications Received in ER Medications (Trade) Dose Ordered Sig/Ritu Route PRN Reason Start Time Stop Time Status Last Admin Dose Admin (morphine inj.) 6 mg ONCE ONCE IV 01/12/25 17:30 01/12/25 17:42 DC 01/12/25 18:17 6 MG Lactated Ringer's 1,000 ml @ 1,000 mls/hr ONCE ONCE IV 01/12/25 17:30 01/12/25 18:29 DC 01/12/25 18:16 1,000 MLS/HR (Kenalog 0.1% cream) 1 applic ONCE ONCE TP 01/12/25 17:30 01/12/25 17:41 DC 01/12/25 18:15 1 APPLIC Vital Signs 01/12/25 01/12/25 01/12/25 01/12/25 15:26 15:38 15:55 15:58 Temp 98.6 Pulse 84 86 83 Resp 18 17 16 12 B/P (MAP) 157/78 157/78 (104) 136/75 (95) Pulse Ox 95 98 94 O2 Flow Rate 0 0 0 01/12/25 01/12/25 16:35 18:17 Pulse 83 Resp 12 16 B/P (MAP) 134/71 (92) Pulse Ox 95 O2 Flow Rate 0 Laboratory Tests Test 01/12/25 15:40 01/12/25 17:31 White Blood Count 12.9 H Red Blood Count 4.45 Hemoglobin 12.9 Hematocrit 38.3 Mean Corpuscular Volume 85.9 Mean Corpuscular Hemoglobin 29.0 Mean Corpuscular Hemoglobin Concent 33.8 Red Cell Distribution Width 14.3 Platelet Count 284 Mean Platelet Volume 6.9 L Neutrophils (%) (Auto) 63.8 Lymphocytes (%) (Auto) 28.5 Monocytes (%) (Auto) 5.9 Eosinophils (%) (Auto) 1.4 Basophils (%) (Auto) 0.4 Neutrophils # (Auto) 8.3 H Lymphocytes # (Auto) 3.7 Monocytes # (Auto) 0.8 Eosinophils # (Auto) 0.2 Basophils # (Auto) 0.0 CBC Comment Sodium Level 135 Potassium Level 4.5 Chloride Level 103 Carbon Dioxide Level 25.2 Anion Gap 7 L Blood Urea Nitrogen 18 Creatinine 0.99 H Estimated GFR/1.73 m2 53 BUN/Creatinine Ratio 18.2 Glucose Level 119 H Calcium Level 9.2 Troponin I High Sensitivity 7 8 Pro-B-Type Natriuretic Peptide 253 Albumin 3.8 Chemistry Comments Troponin I High Sens Percent Delta 14 Troponin I Hi Sens Absolute Change 1 EKG/XRAY/CT/US/VASC/MRI EKG : Additional Comment EKG interpreted by myself shows time of 1527, rate 81, sinus rhythm, normal axis, left bundle-branch block. Chest X-Ray : Additional Comments Exam: CHEST,SINGLE VIEW CHEST RADIOGRAPH Indication: CP Technique: Single frontal view of the chest was obtained Comparison: CHEST,SINGLE VIEW on DOS: 08/07/21, CTA CHEST on DOS: 09/13/20, CHEST,SINGLE VIEW on DOS: 09/01/20 FINDINGS: Lines and Tubes: None Lungs: No focal consolidation. Pleura: No effusion. No pneumothorax. Cardiomediastinal contours: Cardiomegaly. Bones: No acute osseous abnormality. IMPRESSION: Cardiomegaly with CHF : Impression Exam: CT ABDOMEN PELVIS Indication: abdominal pain Technique: CT axial images of the abdomen and pelvis are obtained with intravenous contrast. Coronal and sagittal reformats were obtained. Radiation Dose Information: CTDI volume is 11.3 mGy. Dose-length product is 565 mGy*cm Comparison: CT CT ABDOMEN PELVIS on DOS: 10/16/24 FINDINGS: Lung bases demonstrate atelectasis. Adrenal glands unremarkable. 8 mm splenic hypodense lesion. Pancreas demonstrates parenchymal atrophy. Cholecystectomy. No enhancing hepatic lesion. Small amount of perihepatic ascites fluid. Kidneys demonstrate no hydronephrosis. Right renal cyst measuring up to 1.4 cm. Stomach partially distended. Small bowel loops are moderately distended. There is also some small bowel hyperemia with surrounding stranding. Colonic diverticular disease. Mucosal hyperemia and bowel wall thickening of the transverse, descending and rectosigmoid colon. Abdominal aortic atherosclerotic disease. Bladder is distended. Trace free pelvic fluid. Postsurgical changes bilateral inguinal region. [id number] bilateral sacroiliac degenerative joint disease. Thoracic neurostimulator leads. Posterior fixation of the L5 and S1 vertebral bodies. Anterior hardware at S1.4 mm anterolisthesis of L4 upon L5. Anterior abdominal wall soft tissue stranding in the infraumbilical region. IMPRESSION: Bowel wall hyperemia and thickening of the transverse, descending and rectosigmoid colon which can be seen with colitis, inflammatory bowel disease. Small bowel hyperemia with surrounding mesenteric stranding may represent sequela of enteritis, inflammatory disease. Small amount of perihepatic ascites fluid. Colonic diverticular disease. Atherosclerotic disease. Trace free pelvic fluid. Splenic hypodense lesion measuring 8 mm which can be further characterized with multiphasic MRI abdomen in the nonemergent setting. Anterior abdominal wall soft tissue stranding in the region of the infraumbilical region could represent sequela of cellulitis. Correlate clinically. Other findings as described. Heart Score: Heart Score Response (Comments) Value History Moderate Suspicious 1 EKG Repolarization Disturb 1 Age >65 2 Risk Factors >3 or Hx ASHD 2 Troponin Normal limit 0 Total 6 Medical Decision Making Additional information obtaine: old records Findings 84 yof p/w chest pressure neck pain and abdominal pain. H/o chronic back pain. Recurrent diverticulitis. EKG is chronic LBB. Troponin negative. Chest pain free in ED. Does have abd ttp. Labs reassuring. S/o Dr. Croft pending CT A/P. Also re chest pain has stress with Vines recently which she reports was normal. Disposition pending Dr. Croft,. Assume care of patient. Patient's chest pain is atypical and given her recent reported negative stress test he had not feel she needs to be admitted emergently for further investigation. Troponins reassuring as his EKG. Patient is also having abdominal pain. CT scan performed that has positive for colitis. Mild elevation of white blood cell count given risks versus benefit I will treat for bacterial infection. Antibiotics initiated with ER precautions discussed. She is nontoxic appearing and I believe he will do well on outpatient basis. No recent antibiotics and given HPI do not feel she is suffering from Clostridium difficile. Heart Score: 6 Differential Dx:Considerations: Include: angina, aortic dissection, chest wall pain, cholelithiasis, CHF Departure Disposition: 30 STILL A PATIENT Impression: Primary Impression: Abdominal pain Qualified Codes: R10.32 - Left lower quadrant pain Additional Impression: Acute chest pain Condition: Stable Discharge Instructions: Colitis, Nonspecific Chest Pain, Adult Referrals: NO PRIMARY CARE PROVIDER (PCP) Prescriptions Amox Tr/Potassium Clavulanate (Augmentin 500-125 Tablet) 1 Each Tablet 1 TAB PO Q12H for 7 Days, #14 TAB Prov: FORTINO CROFT MD 01/12/25 Signature Scribe Signature: na Attestation: LARRY Joy MD Jan 12, 2025 16:18 FORTINO CROFT MD Jan 12, 2025 18:25
[2025-01-12] MEDS ORDERED: iohexol 300mg/ml 100ml inj. ONE (17:40)
[2025-01-12] MEDS: ringers solution, lacted 1,000 ML IV ONE (18:16)
[2025-01-12] MEDS: morphine 4 MG/ML inj SYRINge IV ONE (18:17)
--- NOTE | 2025-01-12 18:21 | RADIOLOGY REPORT ---
Indication: abdominal pain Technique: CT axial images of the abdomen and pelvis are obtained with intravenous contrast. Coronal and sagittal reformats were obtained. Radiation Dose Information: CTDI volume is 11.3 mGy. Dose-length product is 565 mGy*cm Comparison: CT CT ABDOMEN PELVIS on DOS: 10/16/24 FINDINGS: Lung bases demonstrate atelectasis. Adrenal glands unremarkable. 8 mm splenic hypodense lesion. Pancreas demonstrates parenchymal atrophy. Cholecystectomy. No enhancing hepatic lesion. Small amount of perihepatic ascites fluid. Kidneys demonstrate no hydronephrosis. Right renal cyst measuring up to 1.4 cm. Stomach partially distended. Small bowel loops are moderately distended. There is also some small bowel hyperemia with surrounding stranding. Colonic diverticular disease. Mucosal hyperemia and bowel wall thickening of the transverse, descending and rectosigmoid colon. Abdominal aortic atherosclerotic disease. Bladder is distended. Trace free pelvic fluid. Postsurgical changes bilateral inguinal region. Osop-oc-iyiwwzaf bilateral sacroiliac degenerative joint disease. Thoracic neurostimulator leads. Posterior fixation of the L5 and S1 vertebral bodies. Anterior hardware at S1.4 mm anterolisthesis of L4 upon L5. Anterior abdominal wall soft tissue stranding in the infraumbilical region. IMPRESSION: Bowel wall hyperemia and thickening of the transverse, descending and rectosigmoid colon which can be seen with colitis, inflammatory bowel disease. Small bowel hyperemia with surrounding mesenteric stranding may represent sequela of enteritis, inflammatory disease. Small amount of perihepatic ascites fluid. Colonic diverticular disease. Atherosclerotic disease. Trace free pelvic fluid. Splenic hypodense lesion measuring 8 mm which can be further characterized with multiphasic MRI abdomen in the nonemergent setting. Anterior abdominal wall soft tissue stranding in the region of the infraumbilical region could represent sequela of cellulitis. Correlate clinically. Other findings as described.
[2025-01-12] MEDS ORDERED: AMOX1TAB87 PO (19:08)
[2025-01-12 19:13] VITALS: BP 144/68; PULSE 76; RESP 16; O2SAT 98
[2025-01-12] MEDS: ondansetron 4mg rapidly disintigrating tab PO ONE (19:22)
[2025-01-12] MEDS: amox tr/potassium clavulanate 875/125mg TAB PO ONE (19:22)
== END 2025-01-12 21:00 | disposition still patient (30) ==
LOC: ER 15:20
DX: R07.9 Chest pain, unspecified (principal); R10.32 Left lower quadrant pain; E11.9 Type 2 diabetes mellitus without complications; E78.00 Pure hypercholesterolemia, unspecified; G89.29 Other chronic pain; I11.0 Hypertensive heart disease with heart failure; I50.9 Heart failure, unspecified; I25.10 Atherosclerotic heart disease of native coronary artery without angina pectoris; K21.9 Gastro-esophageal reflux disease without esophagitis; Z88.1 Allergy status to other antibiotic agents; Z88.2 Allergy status to sulfonamides; Z88.8 Allergy status to other drugs, medicaments and biological substances; Z88.5 Allergy status to narcotic agent; Z88.6 Allergy status to analgesic agent; Z90.49 Acquired absence of other specified parts of digestive tract; Z90.710 Acquired absence of both cervix and uterus; Z95.1 Presence of aortocoronary bypass graft; Z95.5 Presence of coronary angioplasty implant and graft; Z87.440 Personal history of urinary (tract) infections; Z79.899 Other long term (current) drug therapy
CPT/HCPCS: 36415; 71045; 74177; 80048; 83880; 84484; 85025; 93005; 96361; 96374; 99285; J2270; J7120; Q9967